=== PATIENT | male | born 1995 | race Caucasian/White ===

== ENCOUNTER 2018-10-16 10:14 | Emergency (ER) | payer OTHER ==
[~2018-10-16] VITALS: Ht 175.3 cm; Wt 84.5 kg
[2018-10-16] MEDS ORDERED: HUMA100I3 SC (10:30)
[2018-10-16] MEDS ORDERED: QC A650T3 PO (12:29)
[2018-10-16 12:36] VITALS: BP 129/70
--- NOTE | 2018-10-16 13:34 | REP ---
LEFT HAND COMPLETE: 10/16/2018. Clinical history: Trauma, pain to left fourth digit. Findings: Four views were provided with no prior study. There is an old healed and remodeled fracture of the distal fifth metacarpal. There is no evidence for refracture of that bone. The other metacarpals, carpal bones, phalanges and the distal radius and ulna are all without definite fracture. Impression: 1. Old, healed and remodeled fracture of the distal fifth metacarpal without evidence of any acute fracture. ADDENDUM after search lead and at the time of signature: I received a call from the ED and spoke to PA caring for the patient at about 11:25 AM. There are syndrome I attention to the area abnormal on the physical exam and correlated with radiographs. There is in fact a mildly comminuted intra-articular fracture of the mid proximal shaft of the middle phalanx of the fourth digit. Impression:1. Old healed and remodeled fracture of the distal fifth metacarpal without evidence of acute metacarpal fracture.2. Mildly comminuted fracture of the middle phalanx 4th digit involving its mid shaft to PIP joint with intra-articular extension. Electronically Signed by Micah Dejesus MD 10/16/2018 01:57 P
== END 2018-10-16 12:46 | disposition home or self-care (01) ==
LOC: M ED 10:14
DX: S62.625A Displaced fracture of middle phalanx of left ring finger, initial encounter for closed fracture (principal); W23.0XXA Caught, crushed, jammed, or pinched between moving objects, initial encounter; Y92.89 Other specified places as the place of occurrence of the external cause; Y93.67 Activity, basketball; E10.9 Type 1 diabetes mellitus without complications; Z79.4 Long term (current) use of insulin; F17.210 Nicotine dependence, cigarettes, uncomplicated

== ENCOUNTER → 2018-11-02 | Outpatient (REF) | payer OTHER ==
[~2018-11-02] MED LIST: HUMA100I3 SC; QC A650T3 PO
[2018-11-02 15:09] LABS: HEMATOCRIT 49.1 % (42.0-52.0); HEMOGLOBIN 16.7 g/dl (13.5-17.5); MEAN CORPUSCULAR HEMOGLOBIN 30.5 pg (27.0-33.0); MEAN CORPUSCULAR VOLUME 89.8 fl (80.0-96.0); PLATELET COUNT, AUTOMATED 187 10^3/uL (150-450); RED BLOOD COUNT 5.47 10^6/uL (4.30-6.10); WHITE BLOOD COUNT 5.3 10^3/uL (4.0-10.0)
[2018-11-02 15:33] LABS: ALBUMIN 3.6 GM/DL (3.2-5.2); ALT/SGPT 15 U/L (12-78); BILIRUBIN,TOTAL 0.4 MG/DL (0.2-1.0); BLOOD UREA NITROGEN 9 MG/DL (7-18); CALCIUM LEVEL 8.5 MG/DL (8.5-10.1); CARBON DIOXIDE LEVEL 30 MEQ/L (21-32); CHLORIDE LEVEL 105 MEQ/L (98-107); CREATININE FOR GFR 0.98 MG/DL (0.70-1.30); GLOMERULAR FILTRATION RATE > 60.0 (>60); GLUCOSE, FASTING 121 MG/DL (70-100); SODIUM LEVEL 142 MEQ/L (136-145); TOTAL PROTEIN 6.4 GM/DL (6.4-8.2)
== END ==
LOC: M LAB REF 14:23
PROVIDERS: ATTEND Surgery
DX: Z01.818 Encounter for other preprocedural examination (principal); S62.90XA Unspecified fracture of unspecified hand, initial encounter for closed fracture; X58.XXXA Exposure to other specified factors, initial encounter; Y92.9 Unspecified place or not applicable